=== PATIENT | male | born 1980 | race Caucasian/White ===

== ENCOUNTER 2021-12-20 16:18 | Emergency (ER) | payer OTHER, SELFPAY ==
--- NOTE | ~2021-12-20 | XR_ITS ---
EXAM: XR shoulder LT min 2V HISTORY: pain COMPARISON: None available FINDINGS: Normal mineralization. No fracture or dislocation. No lytic or blastic lesion. Joint space s maintained. No erosion or periosteal change. Soft tissues within normal limits. IMPRESSION: No acute osseous finding in the left shoulder. Reviewed, dictated and finalized at location K.
[2021-12-20 16:20] VITALS: BP 136/93; PULSE 82; RESP 14; TEMP 36.3; O2SAT 100
--- NOTE | 2021-12-20 17:33 | ED.UPPEXIN ---
HPI - Extremity Injury (Upper) General Chief Complaint: Extremity Injury, Upper Stated Complaint: Left shoulder pain Time Seen by Provider: 12/20/21 16:28 History of Present Illness HPI narrative: Patient is a 41-year-old male who presents ER with left shoulder pain. It occurred last week while lifting pallets at work. His pain occurs when he performs forward flexion to lift something above his head. He can only lift his arm above his head if he abducts the shoulder. Today he was driving and he noticed that his arm was feeling tingling. He reports initially the pain began the posterior aspect of his shoulder but is started to radiate beneath the axilla into the front of his shoulder. No swelling or bruising. Related Data Allergies Allergy/AdvReac Type Severity Reaction Status Date / Time No Known Allergies Allergy Verified 12/20/21 16:25 Review of Systems Constitutional: Constitutional: Denies chills and Denies fever(s) Musculoskeletal: Musculoskeletal: Reports arthralgias, Denies joint swelling and Denies muscle cramps Neurologic: Denies focal weakness and Denies numbness Comments: arm tingling PMFSH Past Medical History Medical History (Updated 12/20/21 @ 17:40 by Chencho Goodwin MD) Healthy adult male Surgical History Surgical History (Updated 12/20/21 @ 17:40 by Chencho Goodwin MD) No pertinent past surgical history Social History Social History (Updated 12/20/21 @ 17:40 by Chencho Goodwin MD) Smoking status: Current every day smoker Exam Narrative: GENERAL: Well-appearing, well-nourished, and in no acute distress. HEAD: Normocephalic, atraumatic. EXTREMITIES: Pain with forward flexion at 90 degrees of the left shoulder. Normal internal and external rotation. Able to reach T10 and midline of his back. Able to lift his arm above his head if he abducts. SKIN: Warm, dry, no rash. NEURO: Alert and oriented x3. PSYCH: Normal mood and affect. Course Course Emergency Course: Imaging unremarkable. Recommend anti-inflammatories and no heavy lifting until he can be seen by orthopedic surgery. May have a soft tissue tear within the shoulder. Vital Signs Vital signs: Vital Signs Temperature 97.3 F L 12/20/21 16:20 Pulse Rate 82 12/20/21 16:20 Respiratory Rate 14 12/20/21 16:20 Blood Pressure 136/93 H 12/20/21 16:20 Pulse Oximetry 100 12/20/21 16:20 Temperature 97.3 F L 12/20/21 16:20 Pulse Rate 82 12/20/21 16:20 Respiratory Rate 14 12/20/21 16:20 Blood Pressure 136/93 H 12/20/21 16:20 Pulse Oximetry 100 12/20/21 16:20 Discharge Plan Discharge Clinical Impression: Shoulder sprain Patient Disposition: Home, Self-Care Condition: Stable Instructions: Shoulder Sprain (ED) Additional Instructions: Return the ER if you suffer new injury, you have focal weakness of your arm, if you develop redness/swelling, you have additional concerns. Follow-up with orthopedic surgery. They will determine whether you need an MRI for further assessment of your shoulder discomfort. Prescriptions: New naproxen 500 mg tablet 500 mg PO BID Qty: 14 RF: 0 Follow-up/Referrals: Anthony Tripp MD [Physician] - 1 Week PHYSICIAN,TATTOO IDENTIFIER [Primary Care Provider] - Stand Alone Forms: Work/School Release IP
== END 2021-12-20 17:51 | disposition home or self-care (01) ==
LOC: ANHED 17:44
PROVIDERS: Emergency Provider Emergency Medicine
DX: S43.402A Unspecified sprain of left shoulder joint, initial encounter (principal); F17.200 Nicotine dependence, unspecified, uncomplicated; X50.0XXA Overexertion from strenuous movement or load, initial encounter
CPT/HCPCS: 73030; 99283

== ENCOUNTER 2022-01-16 20:19 | Emergency (ER) | payer BC, SELFPAY ==
--- NOTE | ~2022-01-16 | XR_ITS ---
EXAM: XR shoulder RT min 2V DATE: 01/16/2022 21:09 HISTORY: right shoulder pain X1 WK, NKI, PAIN WITH ROTATION . COMPARISON: None available. FINDINGS: Normal mineralization. No fracture or dislocation. No lytic or blastic lesion. Joint space s are maintained. No erosion or periosteal change. Soft tissues within normal limits. IMPRESSION: No acute osseous finding in the right shoulder. Reviewed, dictated and finalized at location K.
[2022-01-16 20:32] VITALS: BP 148/93; PULSE 83; RESP 18; TEMP 36.4; O2SAT 100
--- NOTE | 2022-01-16 21:57 | ED.UPPEXIN ---
HPI - Extremity Injury (Upper) General Chief Complaint: Extremity Injury, Upper Stated Complaint: shoulder pain Time Seen by Provider: 01/16/22 21:05 Source: patient Mode of arrival: ambulatory Limitations: no limitations History of Present Illness HPI narrative: This is a 41-year-old male that presents to the emergency department for right shoulder pain over the last week. No known injury or trauma. The pain is worse with certain movements. He has been taking his prescribed pain medication and using a brace with some relief. Denies decreased range of motion or numbness. Related Data Allergies Allergy/AdvReac Type Severity Reaction Status Date / Time No Known Allergies Allergy Verified 01/16/22 20:35 Review of Systems Review of Systems: CONSTITUTIONAL: Denies fever SKIN: Denies rash MUSCULOSKELETAL: Reports joint pain, and myalgia. NEUROLOGIC: Denies numbness All systems reviewed & are unremarkable except as noted in HPI and below PMFSH Past Medical History Medical History Healthy adult male Surgical History Surgical History No pertinent past surgical history Social History Social History (Updated 01/13/22 @ 08:44 by Brenda Peraza MA) Smoking packs per day: 1 Smoking cigarettes per day: 20.0 Years smoked: 25 Smoking pack-years: 25.00 Smoking status: Current every day smoker Tobacco type: cigarettes Alcohol intake: never Substance use: never Additional occupation/education comments: General Warehouse at [employer] Gender identity (if verbalized by the patient): Male Exam Narrative: GENERAL: Well-appearing, well-nourished, and in no acute distress. HEAD: Normocephalic, atraumatic. EYES: EOMI. CHEST: Clear to auscultation. No respiratory distress. No wheezes rales or rhonchi HEART: Regular rate and rhythm. No murmur heard. Normal peripheral pulses. EXTREMITIES: Normal range of motion. No edema, erythema or warmth. Normal radial pulse. Normal sensation SKIN: Warm, dry, no rash. NEURO: No focal deficits. Alert and oriented x3. PSYCH: Normal mood and affect Course Vital Signs Vital signs: Vital Signs Temperature 97.5 F L 01/16/22 20:32 Pulse Rate 83 01/16/22 20:32 Respiratory Rate 18 01/16/22 20:32 Blood Pressure 148/93 H 01/16/22 20:32 Pulse Oximetry 100 01/16/22 20:32 Oxygen Delivery Room Air 01/16/22 20:32 Temperature 97.5 F L 01/16/22 20:32 Pulse Rate 83 01/16/22 20:32 Respiratory Rate 18 01/16/22 20:32 Blood Pressure 148/93 H 01/16/22 20:32 Pulse Oximetry 100 01/16/22 20:32 Oxygen Delivery Room Air 01/16/22 20:32 MDM - Extremity Injury (Upper) MDM Narrative Medical decision making narrative: Patient presents to the emergency department for right shoulder pain noted over the last week. Patient is neurovascularly intact. Right shoulder x-ray without acute osseous abnormalities. Patient instructed to rest, ice and take [id number] pain medication as needed. Continue supportive brace as needed. He is to follow-up with his orthopedic surgeon. He was given warnings to return to the ER Imaging Data Radiologist's impression: ITS Impressions Shoulder X-Ray 01/16/22 21:22 IMPRESSION: No acute osseous finding in the right shoulder. Critical Care Time Critical Care Time Critical Care Time: No Discharge Plan Discharge Clinical Impression: Acute shoulder pain Qualifiers: Laterality: right Qualified Code(s): M25.511 - Pain in right shoulder Patient Disposition: Home, Self-Care Condition: Stable Instructions: Shoulder Pain (ED) Additional Instructions: Return to the emergency department if you experience fever, redness and swelling of your arm, numbness, or any other symptoms that are concerning to you Rest. Ice to the area. Supportive brace as needed. [id number] pain m
== END 2022-01-16 22:19 | disposition home or self-care (01) ==
PROVIDERS: Emergency Provider Emergency Medicine
DX: M25.511 Pain in right shoulder (principal); F17.210 Nicotine dependence, cigarettes, uncomplicated
CPT/HCPCS: 73030; 99283

== ENCOUNTER 2023-11-04 19:29 | Emergency (ER) | payer SELFPAY ==
--- NOTE | ~2023-11-04 | CT_ITS ---
EXAMINATION: CT brain wo con INDICATION: Head injury COMPARISON: None TECHNIQUE: Standard unenhanced head CT. The dose-length product (DLP) was 756.67 mGy-cm. The mA was a djusted according to patient size. Iterative reconstruction technique was employed. FINDINGS: No intracranial hemorrhage, acute infarction, or abnormal mass lesion. The ventricles are n ormal. No abnormal mass effect or midline shift. The flores-white matter differentiation is normal. The basal cisterns are patent. The orbits are normal. The paranasal sinuses, mastoids and calvarium are normal. IMPRESSION: 1. No acute intracranial abnormality. Reviewed, dictated and finalized at location F.
--- NOTE | ~2023-11-04 | XR_ITS ---
EXAMINATION: XR foot LT min 3V DATE: 11/04/2023 20:03 INDICATION: Left foot pain TECHNIQUE: Dorsoplantar, lateral, and 2 oblique views of the left foot were obtained. COMPARISON: None. FINDINGS: No fracture, dislocation, or subluxation. The bones, soft tissues, and joint spaces are nor mal. IMPRESSION: 1. No acute osseous abnormality. Reviewed, dictated and finalized at location F.
--- NOTE | ~2023-11-04 | CT_ITS ---
EXAMINATION: CT facial bones wo con DATE: 11/04/2023 20:12 INDICATION: Facial pain TECHNIQUE: Computed tomography (CT) of the facial bones and maxillofacial region was performed withou t intravenous contrast. The dose-length product (DLP) was 346.65 mGy-cm. Automated exposure control a nd iterative reconstruction technique were employed. COMPARISON: None. FINDINGS: There is no facial fracture. The globes and orbits are normal. There are polyps or mucous r etention cysts of the right maxillary sinus. Multiple dental caries and periapical abscesses are note d. IMPRESSION: 1. No acute osseous abnormality. 2. Dental disease. Reviewed, dictated and finalized at location F.
[2023-11-04 19:38] VITALS: BP 153/91; PULSE 87; RESP 16; TEMP 36.6; O2SAT 100
--- NOTE | 2023-11-04 19:44 | ED.GENADULT ---
HPI - General Adult General Chief complaint: Trauma Stated complaint: car fell on pt, L foot/R forehead pain Time Seen by Provider: 11/04/23 19:37 History of Present Illness HPI narrative: 44-year-old male present to the emergency department for evaluation after getting stuck under his car. Patient was working under his car when it fell onto own. Patient was stuck under the front bumper but was able to have some friends lift the vehicle and he was able to be extricated. Patient states the bumper did strike his head and did injure his left foot. Related Data Allergies Allergy/AdvReac Type Severity Reaction Status Date / Time No Known Allergies Allergy Verified 11/04/23 19:30 Review of Systems Review of Systems: All systems reviewed & are unremarkable except as noted in HPI and below PMFSH Past Medical History Medical History Healthy adult male Right shoulder pain Surgical History Surgical History No pertinent past surgical history Social History Social History Smoking packs per day: 1 Smoking cigarettes per day: 20.0 Years smoked: 25 Smoking pack-years: 25.00 Smoking status: Current every day smoker Tobacco type: cigarettes Alcohol intake: never Substance use: never Living arrangements: with family Occupation/Education: occupation 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 HEAD: normocephalic, contusion to right for. EYES: PERRLA/EOMI, conjunctivae clear. NOSE: Normal no drainage NECK: Supple. No adenopathy, no masses. RESPIRATORY: Airway patent, respirations nonlabored. Clear to auscultation bilaterally, no rales, rhonchi, wheezing. CARDIOVASCULAR: Regular rate and rhythm without murmurs rubs or gallops. ABDOMINAL: Soft, nontender, nondistended, normal bowel sounds MUSCULOSKELETAL: Moves all extremities. Strength/ROM intact, No edema, No calf tenderness. Tenderness to left mid foot NEURO: Alert. Cranial nerves II through XII intact. Grossly intact SKIN: Warm, dry. Normal Color Course Course Emergency Course: Patient was updated on his results and was discharged home Vital Signs Vital signs: Vital Signs Temperature 97.8 F 11/04/23 19:38 Pulse Rate 87 11/04/23 19:38 Respiratory Rate 16 11/04/23 19:38 Blood Pressure 153/91 H 11/04/23 19:38 Pulse Oximetry 100 11/04/23 19:38 Oxygen Delivery Room Air 11/04/23 19:38 Temperature 98.1 F 11/04/23 21:28 Pulse Rate 76 11/04/23 21:28 Respiratory Rate 15 11/04/23 21:28 Blood Pressure 142/76 H 11/04/23 21:28 Pulse Oximetry 99 11/04/23 21:28 Oxygen Delivery Room Air 11/04/23 19:38 Medical Decision Making MDM Narrative Medical decision making narrative: 43-year-old male presents to the emergency department for evaluation after getting pending her vehicle. Head CT, facial CT and foot x-ray were ordered to evaluate for injury. Head CT, facial CT and foot x-ray were negative for acute findings. Was provided crutches for limited weight-bearing due to the left foot strain. All questions concerns were addressed patient was comfortable with plan for discharge and close follow-up. Differential Diagnosis Differential Diagnosis: Facial fracture, intracranial injury, skull fracture, foot fracture, ankle fracture Vital Signs Vital Signs: Vital Signs Temperature 97.8 F 11/04/23 19:38 Pulse Rate 87 11/04/23 19:38 Respiratory Rate 16 11/04/23 19:38 Blood Pressure 153/91 H 11/04/23 19:38 Pulse Oximetry 100 11/04/23 19:38 Oxygen Delivery Room Air 11/04/23 19:38 Temperature 98.1 F 11/04/23 21:28 Pulse Rate 76 11/04/23 21:28 Respirat
[2023-11-04 19:45] VITALS: PULSE 76
[2023-11-04 21:28] VITALS: BP 142/76; PULSE 76; RESP 15; TEMP 36.7; O2SAT 99
== END 2023-11-04 21:29 | disposition home or self-care (01) ==
LOC: ANHED 21:19
PROVIDERS: Emergency Provider Emergency Medicine
DX: S09.90XA Unspecified injury of head, initial encounter (principal); S99.922A Unspecified injury of left foot, initial encounter; F17.210 Nicotine dependence, cigarettes, uncomplicated; W23.0XXA Caught, crushed, jammed, or pinched between moving objects, initial encounter
CPT/HCPCS: 70450; 70486; 73630; 99284